=== PATIENT | male | born 1965 | race Caucasian/White ===

== ENCOUNTER 2016-11-12 00:43 | Inpatient (IN) ==
[2016-11-12] MEDS ORDERED: 0.9 % Sodium Chloride 1,000 ML IVC ONE (00:56)
--- NOTE | 2016-11-12 00:59 | Emergency Department Note ---
Disposition Clinical Impression: Abdominal pain, Pancreatitis, Hyperammonemia Disposition: Admitted As Inpatient Condition: Fair Referrals: Mary Ann Helton CNP [Primary Care Provider] - Time of Disposition: 03:11 ([facility]) Abdominal Pain HPI - General Stated Complaint: Abdomanal Pain x4 Days Time Seen by Provider: 11/12/16 01:54 Source: patient, EMS Mode of arrival: EMS Limitations: no limitations Nursing Notes Reviewed: Yes Vital Signs Reviewed: Yes - History of Present Illness HPI Narrative: Patient presents to emergency room having epigastric pain nausea vomiting and diarrhea spend going on for the last 4-5 days he states that he is not getting any better he denies fever chills lightheadedness dizziness denies any blurred vision double vision loss is denies any numbness tingling weakness denies any rash or lesions patient states that he just does not feel well he is here because the abdominal pain Pt Subjective Complaint: abdominal pain Onset (ago): day(s) (4-5) Consistency: constant Location: diffuse Pain Severity: severe Pain Scale: 10 Quality: cramping Improves with: nothing Worsens with: eating, vomiting, movement Context: history of similar episodes, other (hx of ascites) Associated symptoms: Reports: nausea, vomiting, diarrhea. Denies: fever, chills , constipation, dysuria, hematemesis, hematochezia, melena, hematuria, anorexia , syncope Treatments prior to arrival: prescription analgesics - Related Data Home Medications Medication Instructions Recorded Confirmed Furosemide [Lasix] 40 mg PO DAILY 06/09/16 08/20/16 Spironolactone [Aldactone] 100 mg PO DAILY 06/09/16 08/20/16 Lactulose 10 gm PO TID 07/02/16 08/20/16 Insulin Glargine [Lantus] 17 unit SQ BID 07/05/16 08/20/16 Albuterol Sulfate [Proair 2 puff IH Q6H 08/20/16 08/20/16 Respiclick] Budesonide/Formoterol 80/4.5 2 puff IH BIDR 08/20/16 08/20/16 [Symbicort 80/4.5] Ergocalciferol (VITAMIN D2) 1 tab PO 7XD 08/20/16 08/20/16 [Vitamin D2] HYDROcodone/Acet 5/325 mg [[place] 1 tab PO Q8H PRN 08/20/16 08/20/16 5-325 mg] Tiotropium [Spiriva] 18 mcg IH DAILY 08/20/16 08/20/16 Previous Rx's Medication Instructions Recorded Hydrocodone/Acetaminophen [[place] 1 tab PO TID PRN #6 tab 08/20/16 5-325 Tablet] Potassium Chloride 20 meq PO DAILY #7 tab.er.prt 08/20/16 Allergies Allergy/AdvReac Type Severity Reaction Status Date / Time tramadol [From Ultram] AdvReac Hives Verified 11/12/16 02:06 All systems ED: reviewed and negative except as stated. Constitutional: Reports: fever, weakness. Denies: chills Eyes: Denies: vision change ENT ED: Denies: ear pain, throat pain Cardiovascular: Denies: chest pain, palpitations Respiratory: Denies: dyspnea, wheezes Gastrointestinal: Reports: abdominal pain, nausea, vomiting, diarrhea Genitourinary: Denies: urgency, dysuria Musculoskeletal: Denies: back pain, neck pain Integumentary: Denies: rash, abrasion Neurological: Denies: headache Psychiatric: Denies: anxiety Endocrine: Reports: fatigue Hematological/Lymphatic: Denies: easy bleeding Allergic/Immunologic: Denies: facial swelling Abdominal Pain PMH - Past Medical History Medical history: Reports: cirrhosis, CHF, COPD, diabetes, liver disease, other Male Surgical History: Reports: appendectomy, other Psychiatric history: Reports: no psych history - Social History Smoking status: Current some day smoker Alcohol use: Reports: none Drug use: Reports: none Physical Exam - General Limitations: no limitations General appearance: alert, anxious, in distress, other - Head Head exam: atraumatic, normocephalic, normal inspection - Eye Eye exam: Present: normal appearance, PERRL, EOMI - ENT ENT exam: normal exam, normal oropharynx, mucous membranes dry, TM's normal bilaterally, normal external ear exam - Neck Neck exam: Present: normal inspection, full ROM, trachea midline - Chest Chest inspection: Present: normal inspection, symmetric chest wall rise - Respiratory Respiratory exam: Present: normal lung sounds bilaterally - Cardiovascular Cardiovascular exam: Present: regular rate, normal rhythm, normal heart sounds - Abdominal Exam Abdominal exam: Present: soft, tenderness, distention, hyperactive bowel sounds. Absent: mass, pulsatile mass - Extremities Exam Extremities exam: Present: normal inspection, full ROM, normal capillary refill - Back Exam Back exam: Present: normal inspection, full ROM. Absent: muscle spasm - Neurological Exam Neurological exam: Present: alert, oriented X3, CN II-XII intact - Psychiatric Psychiatric exam: Present: normal affect, normal mood - Skin Skin exam: Present: warm, dry, intact, normal color Course Course Narrative: Patient was seen and examined patient had an IV ordered patient orders for medicine for his stomach patient is taken radiology CAT scan was performed as result patient was given pain medication admitted and then transferred to [facility] patient has elevated ammonia level that the patient does not appear to be nonresponsive as a level CXXIII patient will be transferred Vital Signs Temperature 98.7 F 11/12/16 01:54 Pulse Rate 88 11/12/16 01:54 Respiratory Rate 24 11/12/16 01:54 Blood Pressure 145/76 11/12/16 01:54 O2 Sat by Pulse Oximetry 99 11/12/16 01:54 Temperature 98.7 F 11/12/16 01:54 Pulse Rate 88 11/12/16 01:54 Respiratory Rate 24 11/12/16 01:54 Blood Pressure 145/76 11/12/16 01:54 O2 Sat by Pulse Oximetry 99 11/12/16 01:54 Oxygen Delivery Oxygen Delivery Room Air Abdominal Pain - Differential Diagnosis Differential Diagnosis: Likely: abdominal pain non-specific, pancreatitis, other (liver disease) - Medical Records Medical records reviewed: Yes I reviewed the patient's medical records. - Lab Data Lab results reviewed: Yes I reviewed the patient's lab results. Result diagrams: 11/12/16 01:34 Lab Results 11/12/16 11/12/16 11/12/16 Range/Units 00:56 01:34 01:34 WBC 5.3 (4.3-11.1) K/mcL RBC 3.59 L (4.19-5.50) M/mcL Hgb 12.7 L (12.9-16.9) g/dL Hct 35.2 L (37.5-50.1) % MCV 98.1 (83.0-100.0) fL MCH 35.4 H (28.0-33.3) pg MCHC 36.1 H (31.6-35.5) g/dL RDW 14.9 H (11.5-14.5) % Plt Count 72 L (140-400) K/mcL MPV 11.9 (9.4-12.4) fL Immature Gran % 0.6 (0-4) % Seg Neutrophils % 74.3 % Lymphocytes % 9.2 % Monocytes % 12.3 % Eosinophils % 3.4 % Basophils % 0.2 % Neutrophils # 3.9 (1.6-8.9) K/mcL Lymphocytes # 0.5 L (0.6-4.6) K/mcL Monocytes # 0.7 (0.0-1.3) K/mcL Eosinophils # 0.2 (0.0-0.6) K/mcL Basophils # 0.0 (0.0-0.2) K/mcL Platelet Estimate Decreased L (Normal) PT (9.4-12.1) Seconds INR APTT 33.2 (26.0-36.0) Seconds Ammonia (18-72) mcmol/L Lipase (8-78) Units/L Urine Color Dark Yellow (Yellow) Urine Clarity Clear (Clear) Urine pH 5.5 (5.0-8.0) pH Units Ur Specific [place] 1.015 (1.010-1.025) Urine Protein Negative (Neg-Trace) mg/dL Urine Glucose (UA) Normal (Normal) mg/dL Urine Ketones Negative (Negative) mg/dL Urine Blood Trace-intact H (Negative) Urine Nitrite Negative (Negative) Urine Bilirubin Negative (Negative) Urine Urobilinogen Normal (Normal) mg/dL Ur Leukocyte Esterase Negative (Negative) Ur Squamous Epith Cells Few (None-Few) per lpf Ur Culture Indicated? NO (NO) 11/12/16 11/12/16 11/12/16 Range/Units 01:34 01:34 01:34 WBC (4.3-11.1) K/mcL RBC (4.19-5.50) M/mcL Hgb (12.9-16.9) g/dL Hct (37.5-50.1) % MCV (83.0-100.0) fL MCH (28.0-33.3) pg MCHC (31.6-35.5) g/dL RDW (11.5-14.5) % Plt Count (140-400) K/mcL MPV (9.4-12.4) fL Immature Gran % (0-4) % Seg Neutrophils % % Lymphocytes % % Monocytes % % Eosinophils % % Basophils % % Neutrophils # (1.6-8.9) K/mcL Lymphocytes # (0.6-4.6) K/mcL Monocytes # (0.0-1.3) K/mcL Eosinophils # (0.0-0.6) K/mcL Basophils # (0.0-0.2) K/mcL Platelet Estimate (Normal) PT 18.2 H (9.4-12.1) Seconds INR 1.7 APTT (26.0-36.0) Seconds Ammonia 123 H (18-72) mcmol/L Lipase 141 H (8-78) Units/L Urine Color (Yellow) Urine Clarity (Clear) Urine pH (5.0-8.0) pH Units Ur Specific [place] (1.010-1.025) Urine Protein (Neg-Trace) mg/dL Urine Glucose (UA) (Normal) mg/dL Urine Ketones (Negative) mg/dL Urine Blood (Negative) Urine Nitrite (Negative) Urine Bilirubin (Negative) Urine Urobilinogen (Normal) mg/dL Ur Leukocyte Esterase (Negative) Ur Squamous Epith Cells (None-Few) per lpf Ur Culture Indicated? (NO) - Radiology Data Radiology results reviewed: Yes I reviewed the patient's radiology results. ITS Impressions Abdomen/Pelvis CT 11/12/16 00:55 IMPRESSION: 1. A few mildly dilated small bowel loops, and liquid in multiple small bowel loops. The findings are indeterminate but could be related to enteritis. 2. Liquid stool throughout the colon into the rectum, suggesting diarrhea. 3. Findings of cirrhosis no suspicious focal liver lesion. 4. Findings of portal hypertension, including dilation of the main portal vein, enlarged venous collaterals, marked splenomegaly, and large ascites. 5. 4.2 cm x 3.8 cm x 3.4 cm lesion adjacent to paragastric varices. This could potentially represent aneurysmal dilation of a varix or lymphadenopathy. Consider further characterization with a contrast-enhanced study on a nonemergent basis, potentially liver protocol MRI or CT to better characterize the liver for any subtle lesions. 6. Trace right and small left pleural effusions and minimal anasarca. D/ / Tanvir Benoit MD / Tanvir Benoit MD Interpreting Provider: Tanvir Benoit MD - EKG Data EKG attestation: Yes I reviewed and interpreted this EKG. EKG results narrative: Rhythm NSR Heart Rate 89 AK 139 QRS 102 QT 382 Axes 56 Critical Care Time Critical Care Time: No
[2016-11-12 01:56] LABS: INR 1.7; Prothrombin Time 18.2 Seconds (9.4-12.1)
[2016-11-12 02:06] LABS: Basophils % 0.2 %; Eosinophils # 0.2 K/mcL (0.0-0.6); Eosinophils % 3.4 %; Hematocrit 35.2 % (37.5-50.1); Hemoglobin 12.7 g/dL (12.9-16.9); Immature Granulocytes % 0.6 % (0-4); Lymphocytes # 0.5 K/mcL (0.6-4.6); Lymphocytes % 9.2 %; Mean Corpuscular HGB Conc 36.1 g/dL (31.6-35.5); Mean Corpuscular Hemoglobin 35.4 pg (28.0-33.3); Mean Corpuscular Volume 98.1 fL (83.0-100.0); Mean Platelet Volume 11.9 fL (9.4-12.4); Monocytes # 0.7 K/mcL (0.0-1.3); Monocytes % 12.3 %; Neutrophils # 3.9 K/mcL (1.6-8.9); Platelet Count 72 K/mcL (140-400); Red Blood Count 3.59 M/mcL (4.19-5.50); Red Cell Distribution Width 14.9 % (11.5-14.5); Segmented Neutrophils % 74.3 %
[2016-11-12] MEDS: Ondansetron 4 MG/2 ML VIAL IV STA ×2 (02:12→04:01)
[2016-11-12 02:15] LABS: Bilirubin,Urine Negative (Negative); Blood,Urine Trace-intact (Negative); Clarity,Urine Clear (Clear); Color,Urine Dark Yellow (Yellow); Glucose,Urine (UA) Normal (Normal); Ketones,Urine Negative (Negative); Leukocyte Esterase,Urine Negative (Negative); Nitrite,Urine Negative (Negative); PH,Urine 5.5 pH Units (5.0-8.0); Protein,Urine Negative (Neg-Trace); Specific Gravity,Urine 1.015 (1.010-1.025); Urobilinogen,Urine Normal (Normal)
[2016-11-12 02:19] LABS: Platelet Estimate Decreased (Normal)
[2016-11-12 02:24] LABS: Squamous Epithelial Cell,Urine Few per lpf (None-Few)
[2016-11-12] MEDS ORDERED: Lactulose Oral Soln 20 GM/30 ML UDC PO ONE (03:05)
[2016-11-12] MEDS ORDERED: Dicyclomine 20 MG/2 ML AMPUL IM ONE (03:22)
[2016-11-12] MEDS ORDERED: Ondansetron 4 MG/2 ML VIAL IV STA (03:22)
[2016-11-12] MEDS ORDERED: Dextrose Gel 15 GM PO PRN ×2 (04:21)
[2016-11-12] MEDS ORDERED: *HR* Dextrose 50 % in Water (Syg) 50 ML SYRINGE IVP PRN (04:21)
[2016-11-12] MEDS ORDERED: Naloxone 0.4 MG/ML INJ IVP PRN (04:21)
[2016-11-12] MEDS ORDERED: D5% in Water 1,000 ML IV PRN (04:21)
[2016-11-12] MEDS: *HR* Morphine 2 MG/ML SYRINGE IVP PRN ×8 (04:40→22:58)
[2016-11-12] MEDS: 0.9 % Sodium Chloride 1,000 ML IVC SCH (05:31)
[2016-11-12] MEDS: Insulin LISPRO 300 UNITS/3 ML VIAL SQ SCH ×3 (09:11→17:25)
[2016-11-12 10:30] LABS: Alanine Aminotransferase 23 Units/L (0-55); Albumin 2.6 g/dL (3.5-5.0); Albumin/Globulin Ratio 0.6 (1.1-2.2); Alkaline Phosphatase 100 Units/L (38-126); Aspartate Amino Transferase 49 Units/L (5-34); BUN/Creatinine Ratio 15 (6-26); Bilirubin,Total 5.4 mg/dL (0.2-1.2); Blood Urea Nitrogen 21 mg/dL (8-26); Calcium 8.4 mg/dL (8.6-10.8); Carbon Dioxide 18 mEq/L (19-29); Chloride 110 mEq/L (98-109); Globulin 4.5 g/dL (2.4-3.5); Glucose 144 mg/dL (70-99); Osmolality,Calculated 288 (280-300); Potassium 4.5 mEq/L (3.5-4.5); Sodium 136 mEq/L (136-145); Total Protein 7.1 g/dL (6.0-8.3); eGFR For African Americans > 60 (> 60); eGFR For Non-African Americans 54 (> 60)
--- NOTE | 2016-11-12 11:08 | Electrocardiograph Report ---
[facility] Test Date: 2016-11-12 Pat Name: Dandy Adame Department: [id number] Room: [facility] Gender: M Top Collar Baster: Carlo : 1965 Requested By: Joselyn Noriega Order Number: [id number] Reading MD: Magan Nicholson MD Measurements Intervals [place] Rate: 89 P: 62 MI: 139 QRS: 56 QRSD: 102 T: 74 QT: 382 QTc: 429 Interpretive Statements SINUS RHYTHM Electronically Signed On 11-12-16 11:06:43 EST by Magan Nicholson MD
[2016-11-12] MEDS: Pantoprazole 40 MG VIAL IVP SCH (11:13)
--- NOTE | 2016-11-12 12:39 | Internal Med History&Physical ---
Date of Encounter: 11/12/16 Time of Encounter: 12:00 Assessment and Plan (1) Alcoholic cirrhosis of liver Current visit: Yes Status: Chronic Continue Lasix and Aldactone. I will obtain a full medication list from the pharmacy to see if he was previously taking rifaximin. Further workup will be done as needed. Qualifiers: Ascites presence: with ascites Qualified Code(s): K70.31 - Alcoholic cirrhosis of liver with ascites (2) Anemia Current visit: Yes Status: Chronic Anemia testing done 07/28/2016 showed no factor deficiency. I suspect he has bone marrow suppression from chronic alcohol use/cirrhosis. Qualifiers: Anemia type: unspecified type Qualified Code(s): D64.9 - Anemia, unspecified (3) Hypomagnesemia Current visit: Yes Status: Acute Magnesium level was 1.5 in emergency room. We will start magnesium supplementation. (4) Azotemia Current visit: Yes Status: Acute Will monitor renal indices. (5) Pancreatitis Current visit: Yes Status: Acute Seems to be of minimal severity. CT of abdomen did not show peripancreatic inflammation. We will monitor labs and clinical progress. Qualifiers: Chronicity: acute Pancreatitis type: unspecified pancreatitis type Acute pancreatitis complication: unspecified Qualified Code(s): K85.90 - Acute pancreatitis without necrosis or infection, unspecified Internal Medicine - H&P: HPI Chief complaint: Vomiting, diarrhea, abdominal pain Admitted From: Home Plans for Post Hospital Care: Home History of present illness: Mr. Adame is a 51 year old male who came to the emergency room stating he had onset of vomiting, diarrhea, and worsening abdominal pain approximately 4 days previously. He denies melena, hematochezia, or hematemesis. He reports he has had pain for approximately 4 week since being discharged from [facility]. The pain seemed to be worsening in his right abdominal area. He was evaluated in emergency room and admitted to Medr floor with a diagnosis of pancreatitis and elevated ammonia. He denies previous episodes of pancreatitis. He states he has not consumed alcohol in approximately 7-8 years. He has a diagnosis of alcoholic cirrhosis with ascites and had paracentesis done on each of 2 recent admissions at [facility]. He was placed on a "liver pill" but has not taken it for approximately 1 month because he did not get a refill. He is also not been using lactulose as prescribed. He has been taking his Lasix and Aldactone as prescribed. He states he had EGD with (?) esophageal banding procedure done at [facility]. He denies disorders of his gallbladder. Past Med Surg Social Fam HX - Past Medical History Medical history: cirrhosis, CHF, COPD, diabetes, liver disease, other Psychiatric history: no psych history - Social History Smoking Status: Former smoker Smokeless Tobacco Status: No Alcohol use: none Drug use: none - Family History Father History Unknown: Yes Adopted: [place]: Len Adame Family Member Ethnicity: Non- Living Status: Age at : 66 Cause of : [place] Hx Family Respiratory Disorders: Yes (COPD) Hx Family Cancer: No Hx Family GI Disorders: No Hx Family Genitourinary Disorders: No Hx Family Endocrine Disorder: No Hx Family Musculoskeletal Disorders: No Hx Family Neuromuscular Disorders: No Hx Family Neurologic Disorders: No Hx Family HEENT Disorders: No Hx Family Autoimmune Disorders: No Hx Family Reproductive Disorders: No Hx Family Psychosocial Disorders: No Hx Family Medical Disorders: Yes (history of cirrhosis) Internal Medicine - H&P: Meds Furosemide [Lasix] 120 mg PO BID 06/09/16 [History] Spironolactone [Aldactone] 200 mg PO BID 06/09/16 [History] Lactulose 10 gm PO TID 07/02/16 [History] Insulin Glargine [Lantus] 17 unit SQ BID 07/05/16 [History] Albuterol Sulfate [Proair Respiclick] 2 puff IH Q6H 08/20/16 [History] Budesonide/Formoterol 80/4.5 [Symbicort 80/4.5] 2 puff IH BIDR 08/20/16 [ History] Ergocalciferol (VITAMIN D2) [Vitamin D2] 1 tab PO 7XD 08/20/16 [History] Potassium Chloride 20 meq PO DAILY #7 tab.er.prt 08/20/16 [Rx] Tiotropium [Spiriva] 18 mcg IH DAILY 08/20/16 [History] Allergies tramadol [From Ultram] Adverse Reaction (Verified 11/12/16 02:06) Hives All Systems PM: A 10-system review of systems was performed and is negative for pertinent findings except as documented above in the HPI. Review of systems: Gen.: He states his weight has decreased from approximately 260 pounds a few weeks ago to present weight approximately 200 pounds. He attributes this to fluid loss Cardiovascular: He denies hypertension [place] heart failure angina DVT or pulmonary embolus Respiratory: He states he quit smoking approximately 2 weeks ago after starting at age 6. He smoked a total of 41 years in that interval never exceeding 1 pack per day. He has been diagnosed with COPD from pulmonary function test approximately 2013. He wears oxygen at bedtime and when necessary during the daytime. GI: As per history of present illness : He denies hematuria dysuria or kidney stones Neurologic: He denies large distribution strokes or seizures. Endocrine: Was diagnosed with DM 2 1995. He states he has a "thyroid problem" but does not know specific diagnosis. He states he was prescribed medication for this at an office visit with his PCP 1 week ago but did not feel well after taking the first pill so quit taking the prescription. He denies hyperlipidemia Hematology/oncology: He had anemia and thrombocytopenia on emergency room lab work. He thinks he has had anemia in the past. He denies internal malignancies. Psychiatric: He denies anxiety depression or other mental health issues Musculoskeletal: He denies arthritis gout or other bone joint or muscle disorders.. - Constitutional Vitals: Temp Pulse Resp BP Pulse Ox 97.5 F L 91 18 89/49 96 11/12/16 11:08 11/12/16 11:08 11/12/16 11:08 11/12/16 11:08 11/12/16 11:08 Exam: Gen.: He is a well-developed well-nourished male lying in bed who appears in mild discomfort HEENT: Head is atraumatic and normocephalic. Eyes: EOMI. There is no scleral icterus. Mouth: Mucosa is moist. He is edentulous. Neck: Supple and nontender. There is no thyromegaly or adenopathy noted. Heart: Regular without murmurs gallops or ectopics. Lungs: No wheezes or crackles heard. Abdomen: He has ascites present to percussion. There is mild tenderness to deeper palpation in the right abdominal area. He has a small umbilical hernia approximately one centimeters diameter that is easily reducible. No masses are noted. Extremities: He has trace edema of the lower anterior shins bilaterally. Dorsalis pedis and posterior tibial pulses are trace palpable bilaterally. His feet are warm to touch. Neurologic: Mental status: He is talkative and a good historian. Cranial nerves : Smile is symmetric. Forehead wrinkles bilaterally. Tongue protrudes midline. EOMI. Motor: There is no pronator drift. Cerebellar: Finger to nose is intact bilaterally. Skin: Warm and dry Internal Med - H&P Results - Labs CBC & Chem 7: 11/12/16 01:34 11/12/16 09:57 Labs: BMP 11/12/16 09:57 Sodium 136 Potassium 4.5 Chloride 110 H Carbon Dioxide 18 L BUN 21 Creatinine 1.37 H Glucose 144 H Calcium 8.4 L Liver Function 11/12/16 Range/Units 09:57 Total Bilirubin 5.4 H (0.2-1.2) mg/dL AST 49 H (5-34) Units/L ALT 23 (0-55) Units/L Alkaline Phosphatase 100 (38-126) Units/L Albumin 2.6 L (3.5-5.0) g/dL
[2016-11-12] MEDS: Lactulose Oral Soln 20 GM/30 ML UDC PO SCH ×2 (13:39→20:45)
[2016-11-12] MEDS: Magnesium Oxide 400 MG TABLET PO SCH (13:40)
[2016-11-13] MEDS: *HR* Morphine 2 MG/ML SYRINGE IVP PRN ×3 (01:39→08:41)
[2016-11-13 06:56] LABS: Basophils % 0.2 %; Eosinophils # 0.2 K/mcL (0.0-0.6); Eosinophils % 3.4 %; Hemoglobin 11.3 g/dL (12.9-16.9); Immature Granulocytes % 0.2 % (0-4); Lymphocytes # 0.4 K/mcL (0.6-4.6); Lymphocytes % 6.3 %; Mean Corpuscular HGB Conc 35.3 g/dL (31.6-35.5); Mean Corpuscular Hemoglobin 34.9 pg (28.0-33.3); Mean Corpuscular Volume 98.8 fL (83.0-100.0); Mean Platelet Volume 11.9 fL (9.4-12.4); Monocytes # 0.6 K/mcL (0.0-1.3); Monocytes % 9.5 %; Neutrophils # 5.2 K/mcL (1.6-8.9); Red Blood Count 3.24 M/mcL (4.19-5.50); Red Cell Distribution Width 15.3 % (11.5-14.5); Segmented Neutrophils % 80.4 %
[2016-11-13 07:02] LABS: INR 1.7
[2016-11-13 07:12] LABS: Alanine Aminotransferase 25 Units/L (0-55); Albumin 2.7 g/dL (3.5-5.0); Albumin/Globulin Ratio 0.6 (1.1-2.2); Alkaline Phosphatase 108 Units/L (38-126); Aspartate Amino Transferase 56 Units/L (5-34); BUN/Creatinine Ratio 16 (6-26); Blood Urea Nitrogen 18 mg/dL (8-26); Calcium 8.6 mg/dL (8.6-10.8); Carbon Dioxide 20 mEq/L (19-29); Chloride 108 mEq/L (98-109); Globulin 4.4 g/dL (2.4-3.5); Glucose 218 mg/dL (70-99); Osmolality,Calculated 291 (280-300); Potassium 4.5 mEq/L (3.5-4.5); Sodium 136 mEq/L (136-145); Total Protein 7.1 g/dL (6.0-8.3); eGFR For African Americans > 60 (> 60); eGFR For Non-African Americans > 60 (> 60)
[2016-11-13 07:18] LABS: Platelet Count 65 K/mcL (140-400)
[2016-11-13] MEDS: Lactulose Oral Soln 20 GM/30 ML UDC PO SCH ×2 (08:40→21:16)
[2016-11-13] MEDS: Magnesium Oxide 400 MG TABLET PO SCH (08:40)
[2016-11-13] MEDS: Pantoprazole 40 MG VIAL IVP SCH (08:41)
[2016-11-13] MEDS: Insulin LISPRO 300 UNITS/3 ML VIAL SQ SCH ×3 (08:42→16:58)
[2016-11-13] MEDS: 0.9 % Sodium Chloride 1,000 ML IVC SCH (08:44)
--- NOTE | 2016-11-13 11:03 | Internal Med Progress Note ---
Date of Encounter: 11/13/16 Time of Encounter: 10:50 - Assessment and plan (1) Alcoholic cirrhosis of liver Current Visit: Yes Status: Chronic Assessment and plan: November 13. Continue Lasix and Aldactone with lactulose. I will start him on rifaximin. Qualifiers: Ascites presence: with ascites Qualified Code(s): K70.31 - Alcoholic cirrhosis of liver with ascites (2) Anemia Current Visit: Yes Status: Chronic Assessment and plan: November 13. Anemia testing done 07/28/2016 showed no factor deficiency. I suspect he has bone marrow suppression from chronic alcohol use/cirrhosis. Continue to monitor CBC. Qualifiers: Anemia type: unspecified type Qualified Code(s): D64.9 - Anemia, unspecified (3) Hypomagnesemia Current Visit: Yes Status: Acute Assessment and plan: November 13. Continue magnesium oxide and monitor labs. (4) Azotemia Current Visit: Yes Status: Acute Assessment and plan: November 13. Improved. Continue present management (5) Pancreatitis Current Visit: Yes Status: Acute Assessment and plan: November 13. Continue present management Qualifiers: Chronicity: acute Pancreatitis type: unspecified pancreatitis type Acute pancreatitis complication: unspecified Qualified Code(s): K85.90 - Acute pancreatitis without necrosis or infection, unspecified (6) DM type 2 (diabetes mellitus, type 2) Current Visit: Yes Status: Chronic Assessment and plan: November 13. Will restart Lantus/Levemir at dose lower than usual home dose. Continue Accu-Cheks with SSI. 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 Vitamin D level was 16 on 07/28/2016. We will recheck in a.m. (8) Hypothyroidism Current Visit: Yes Status: Acute Assessment and plan: November 13. TSH was elevated at 13.681 on 07/28/2016. Will recheck TSH in a.m. Qualifiers: Hypothyroidism type: unspecified Qualified Code(s): E03.9 - Hypothyroidism , unspecified - Subjective Interval history: November 13. He states he has had 3 episodes of vomiting since yesterday afternoon when I saw him. He states his abdominal pain is still present but no worse and possibly slightly improved. He denies significant dyspnea. - Constitutional Vitals: Temp Pulse Resp BP Pulse Ox 98.2 F 98 16 122/63 93 L 11/13/16 07:31 11/13/16 07:31 11/13/16 07:31 11/13/16 07:31 11/13/16 07:31 Exam: He appears in minimal distress. He had slight instability on walking from the bathroom to the bed. I reviewed his medications and lab results. Internal Medicine: Result - Labs CBC & Chem 7: 11/13/16 05:57 11/13/16 05:57 Labs: Short CBC 11/13/16 Range/Units 05:57 WBC 6.5 (4.3-11.1) K/mcL Hgb 11.3 L (12.9-16.9) g/dL Hct 32.0 L (37.5-50.1) % Plt Count 65 L (140-400) K/mcL Neutrophils # 5.2 (1.6-8.9) K/mcL BMP 11/13/16 05:57 Sodium 136 Potassium 4.5 Chloride 108 Carbon Dioxide 20 BUN 18 Creatinine 1.12 Glucose 218 H Calcium 8.6 Liver Function 11/13/16 Range/Units 05:57 Total Bilirubin 7.0 H (0.2-1.2) mg/dL AST 56 H (5-34) Units/L ALT 25 (0-55) Units/L Alkaline Phosphatase 108 (38-126) Units/L Albumin 2.7 L (3.5-5.0) g/dL - ABG Interpretation ABG results: PT/INR, D-dimer PT 19.0 Seconds (9.4-12.1) H 11/13/16 05:57 Consult Discharge Plan - Plan
[2016-11-13] MEDS ORDERED: Ondansetron 4 MG/2 ML VIAL IVP PRN (11:07)
[2016-11-13] MEDS: Insulin DETEMIR 100 UNIT/ML X5UNITS SQ SCH (21:17)
[2016-11-14 06:31] LABS: Basophils % 0.2 %; Eosinophils # 0.2 K/mcL (0.0-0.6); Eosinophils % 2.9 %; Hematocrit 28.3 % (37.5-50.1); Hemoglobin 10.3 g/dL (12.9-16.9); Immature Granulocytes % 0.9 % (0-4); Lymphocytes # 0.4 K/mcL (0.6-4.6); Lymphocytes % 6.3 %; Mean Corpuscular HGB Conc 36.4 g/dL (31.6-35.5); Mean Corpuscular Hemoglobin 35.5 pg (28.0-33.3); Mean Corpuscular Volume 97.6 fL (83.0-100.0); Mean Platelet Volume 13.2 fL (9.4-12.4); Monocytes # 0.8 K/mcL (0.0-1.3); Monocytes % 11.7 %; Neutrophils # 5.1 K/mcL (1.6-8.9); Red Cell Distribution Width 15.2 % (11.5-14.5)
[2016-11-14 06:32] LABS: Platelet Count 50 K/mcL (140-400)
[2016-11-14 06:58] LABS: Alanine Aminotransferase 22 Units/L (0-55); Albumin 2.5 g/dL (3.5-5.0); Albumin/Globulin Ratio 0.6 (1.1-2.2); Alkaline Phosphatase 84 Units/L (38-126); Aspartate Amino Transferase 51 Units/L (5-34); BUN/Creatinine Ratio 22 (6-26); Bilirubin,Total 8.1 mg/dL (0.2-1.2); Blood Urea Nitrogen 20 mg/dL (8-26); Calcium 8.5 mg/dL (8.6-10.8); Carbon Dioxide 17 mEq/L (19-29); Chloride 110 mEq/L (98-109); Globulin 4.1 g/dL (2.4-3.5); Glucose 124 mg/dL (70-99); Magnesium 1.8 mg/dL (1.6-2.6); Osmolality,Calculated 284 (280-300); Phosphorous 2.3 mg/dL (2.3-4.7); Potassium 4.4 mEq/L (3.5-4.5); Sodium 135 mEq/L (136-145); Total Protein 6.6 g/dL (6.0-8.3); eGFR For African Americans > 60 (> 60); eGFR For Non-African Americans > 60 (> 60)
[2016-11-14 07:19] LABS: Thyroid Stimulating Hormone 1.999 mcIU/mL (0.350-4.840)
[2016-11-14 09:38] LABS: ABG PCO2 31 mmHg (35-45); ABG PH 7.42 pH Units (7.32-7.45)
--- NOTE | 2016-11-14 09:38 | Internal Med Progress Note ---
Date of Encounter: 11/14/16 Time of Encounter: 09:30 - Assessment and plan (1) Alcoholic cirrhosis of liver Current Visit: Yes Status: Chronic Assessment and plan: November 13. Continue Lasix and Aldactone with lactulose. I will start him on rifaximin. Qualifiers: Ascites presence: with ascites Qualified Code(s): K70.31 - Alcoholic cirrhosis of liver with ascites (2) Anemia Current Visit: Yes Status: Chronic Assessment and plan: November 13. Anemia testing done 07/28/2016 showed no factor deficiency. I suspect he has bone marrow suppression from chronic alcohol use/cirrhosis. Continue to monitor CBC. Qualifiers: Anemia type: unspecified type Qualified Code(s): D64.9 - Anemia, unspecified (3) Hypomagnesemia Current Visit: Yes Status: Acute Assessment and plan: November 13. Continue magnesium oxide and monitor labs. November 14. Magnesium level is normal now at 1.8. Continue magnesium oxide. (4) Azotemia Current Visit: Yes Status: Acute Assessment and plan: November 13. Improved. Continue present management . Resolved. Continue present management. (5) Pancreatitis Current Visit: Yes Status: Acute Assessment and plan: November 13. Continue present management November 14. Continue present management Qualifiers: Chronicity: acute Pancreatitis type: unspecified pancreatitis type Acute pancreatitis complication: unspecified Qualified Code(s): K85.90 - Acute pancreatitis without necrosis or infection, unspecified (6) DM type 2 (diabetes mellitus, type 2) Current Visit: Yes Status: Chronic Assessment and plan: November 13. Will restart Lantus/Levemir at dose lower than usual home dose. Continue Accu-Cheks with SSI. November 14. Blood sugars are improved. Continue present dose of Lantus last Levemir and Accu-Cheks with SSI. Qualifiers: Diabetes mellitus complication status: without complication Diabetes mellitus fdc insulin use: with fdc use Qualified Code(s): E11.9 - Type 2 diabetes mellitus without complications; Z79.4 - FPC (current) use of insulin (7) Vitamin D deficiency Current Visit: Yes Status: Acute Assessment and plan: November 13. Vitamin D level was 16 on 07/28/2016. We will recheck in a.m. November 14. Vitamin D level is pending (8) Hypothyroidism Current Visit: Yes Status: Acute Assessment and plan: November 13. TSH was elevated at 13.681 on 07/28/2016. Will recheck TSH in a.m. November 14. TSH was normal at 1.999. Continue present dose Synthroid Qualifiers: Hypothyroidism type: unspecified Qualified Code(s): E03.9 - Hypothyroidism , unspecified (9) Pneumonia Current Visit: Yes Status: Acute Assessment and plan: November 14. Chest x-ray showed equivocal findings for right lower lobe pneumonia. Will treat with Rocephin and Zithromax. Qualifiers: Pneumonia type: due to unspecified organism Laterality: right Lung location: lower lobe of lung Qualified Code(s): J18.1 - Lobar pneumonia, unspecified organism - Subjective Interval history: November 13. He states he has had 3 episodes of vomiting since yesterday afternoon when I saw him. He states his abdominal pain is still present but no worse and possibly slightly improved. He denies significant dyspnea. November 14. He is less verbal today and seems slightly more confused. He states he still has slight abdominal pain but thinks it is improved. - Constitutional Vitals: Temp Pulse Resp BP Pulse Ox 98.1 F 91 20 98/59 100 11/14/16 06:45 11/14/16 06:45 11/14/16 06:45 11/14/16 06:45 11/14/16 06:45 Exam: He appears ataxic as he attempts to stand. His heart is regular without murmurs gallops or ectopics. Lungs show prolonged's expiratory phase with mild diffuse wheezing. Extremities show trace edema bilaterally. I reviewed his medications and lab results. I reviewed his chest x-ray report from last night which was ordered due to dyspnea Internal Medicine: Result - Labs CBC & Chem 7: 11/14/16 05:46 11/14/16 05:46 Labs: Short CBC 11/14/16 Range/Units 05:46 WBC 6.5 (4.3-11.1) K/mcL Hgb 10.3 L (12.9-16.9) g/dL Hct 28.3 L (37.5-50.1) % Plt Count 50 L (140-400) K/mcL Neutrophils # 5.1 (1.6-8.9) K/mcL BMP 11/14/16 05:46 Sodium 135 L Potassium 4.4 Chloride 110 H Carbon Dioxide 17 L BUN 20 Creatinine 0.93 Glucose 124 H Calcium 8.5 L Liver Function 11/14/16 Range/Units 05:46 Total Bilirubin 8.1 H (0.2-1.2) mg/dL AST 51 H (5-34) Units/L ALT 22 (0-55) Units/L Alkaline Phosphatase 84 (38-126) Units/L Albumin 2.5 L (3.5-5.0) g/dL - ABG Interpretation ABG results: PT/INR, D-dimer PT 19.0 Seconds (9.4-12.1) H 11/13/16 05:57 - Impressions Impressions Chest X-Ray 11/13/16 21:38 IMPRESSION: Small right pleural effusion. Mild right basilar atelectasis and/or consolidation. D/ / Xavier Nj MD / Xavier Nj MD Interpreting Provider: Xavier Nj MD Consult Discharge Plan - Plan Referrals: Mary Ann Helton, ECONOMIC RESEARCH ANALYST [Primary Care Provider] - 1 week
[2016-11-14] MEDS: Insulin DETEMIR 100 UNIT/ML X5UNITS SQ SCH ×2 (09:40→23:15)
[2016-11-14 09:42] LABS: ABG Base Excess -4.3 mEq/L (-2.0 to 3.0); ABG HCO3 20.3 mEQ/L (21-27); ABG PO2 43 mmHg (85-104); ABG TCO2 21.2 mEq/L (20-26)
[2016-11-14 09:43] LABS: ABG Oxygen Saturation 80 % (95-98)
[2016-11-14] MEDS: *HR* LORazepam 2 MG/ML VIAL IVP PRN ×3 (11:46→23:23)
[2016-11-14] MEDS: Insulin LISPRO 300 UNITS/3 ML VIAL SQ SCH ×3 (11:50→18:13)
[2016-11-14] MEDS: CefTRIAXone 1,000 MG in D5% in Water (Mini-Bag+) 100 ML IVPB SCH (11:56)
[2016-11-14] MEDS: Pantoprazole 40 MG VIAL IVP SCH (12:14)
[2016-11-14] MEDS: Azithromycin 500 MG in D5% in Water 250 ML IVPB SCH (13:20)
[2016-11-14] MEDS: Magnesium Oxide 400 MG TABLET PO SCH (13:21)
[2016-11-14] MEDS: Lactulose Oral Soln 20 GM/30 ML UDC PO SCH ×2 (13:21→23:15)
[2016-11-14] MEDS ORDERED: *HR* LORazepam 2 MG/ML VIAL IVP ONE (14:44)
[2016-11-14] MEDS: *HR* Morphine 2 MG/ML SYRINGE IVP PRN ×2 (15:07→23:27)
[2016-11-15] MEDS: *HR* Morphine 2 MG/ML SYRINGE IVP PRN ×3 (03:59→13:19)
[2016-11-15] MEDS: Levothyroxine 25 MCG TABLET PO SCH (06:15)
[2016-11-15 06:35] LABS: Basophils % 0.3 %; Eosinophils # 0.1 K/mcL (0.0-0.6); Eosinophils % 3.7 %; Hematocrit 24.5 % (37.5-50.1); Immature Granulocytes % 0.3 % (0-4); Lymphocytes # 0.6 K/mcL (0.6-4.6); Mean Corpuscular HGB Conc 36.7 g/dL (31.6-35.5); Mean Corpuscular Hemoglobin 35.9 pg (28.0-33.3); Mean Corpuscular Volume 97.6 fL (83.0-100.0); Mean Platelet Volume 12.7 fL (9.4-12.4); Monocytes # 0.6 K/mcL (0.0-1.3); Monocytes % 15.5 %; Neutrophils # 2.4 K/mcL (1.6-8.9); Red Blood Count 2.51 M/mcL (4.19-5.50); Red Cell Distribution Width 15.4 % (11.5-14.5); Segmented Neutrophils % 65.2 %
[2016-11-15 06:36] LABS: Platelet Count 48 K/mcL (140-400)
[2016-11-15 06:47] LABS: Alanine Aminotransferase 20 Units/L (0-55); Albumin 2.1 g/dL (3.5-5.0); Albumin/Globulin Ratio 0.6 (1.1-2.2); Alkaline Phosphatase 68 Units/L (38-126); Aspartate Amino Transferase 44 Units/L (5-34); BUN/Creatinine Ratio 23 (6-26); Bilirubin,Total 5.7 mg/dL (0.2-1.2); Blood Urea Nitrogen 19 mg/dL (8-26); Carbon Dioxide 19 mEq/L (19-29); Chloride 112 mEq/L (98-109); Globulin 3.5 g/dL (2.4-3.5); Glucose 116 mg/dL (70-99); Osmolality,Calculated 287 (280-300); Sodium 137 mEq/L (136-145); Total Protein 5.6 g/dL (6.0-8.3); eGFR For African Americans > 60 (> 60); eGFR For Non-African Americans > 60 (> 60)
[2016-11-15] MEDS: Magnesium Oxide 400 MG TABLET PO SCH (08:44)
[2016-11-15] MEDS: Insulin DETEMIR 100 UNIT/ML X5UNITS SQ SCH ×2 (08:45→20:34)
[2016-11-15] MEDS: Lactulose Oral Soln 20 GM/30 ML UDC PO SCH ×2 (08:45→20:34)
[2016-11-15] MEDS: Insulin LISPRO 300 UNITS/3 ML VIAL SQ SCH ×3 (08:48→17:31)
[2016-11-15] MEDS: Pantoprazole 40 MG VIAL IVP SCH (08:51)
[2016-11-15] MEDS: CefTRIAXone 1,000 MG in D5% in Water (Mini-Bag+) 100 ML IVPB SCH (08:53)
--- NOTE | 2016-11-15 10:04 | Discharge Summary ---
Date of Encounter: 11/15/16 Time of Encounter: 09:50 - Discharge Diagnosis (1) Pancreatitis Priority: Primary Status: Acute Qualifiers: Chronicity: acute Pancreatitis type: unspecified pancreatitis type Acute pancreatitis complication: unspecified Qualified Code(s): K85.90 - Acute pancreatitis without necrosis or infection, unspecified (2) Alcoholic cirrhosis of liver Priority: Secondary Status: Chronic Qualifiers: Ascites presence: with ascites Qualified Code(s): K70.31 - Alcoholic cirrhosis of liver with ascites (3) Anemia Priority: Secondary Status: Chronic Qualifiers: Anemia type: unspecified type Qualified Code(s): D64.9 - Anemia, unspecified (4) Hypomagnesemia Priority: Secondary Status: Acute (5) Azotemia Priority: Secondary Status: Resolved (6) DM type 2 (diabetes mellitus, type 2) Priority: Secondary Status: Chronic Qualifiers: Diabetes mellitus complication status: without complication 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 Qualified Code(s): E11.9 - Type 2 diabetes mellitus without complications; Z79.4 - senior care (current) use of insulin (7) Vitamin D deficiency Priority: Secondary Status: Acute (8) Hypothyroidism Priority: Secondary Status: Chronic Qualifiers: Hypothyroidism type: unspecified Qualified Code(s): E03.9 - Hypothyroidism , unspecified (9) Pneumonia Priority: Secondary Status: Acute Qualifiers: Pneumonia type: due to unspecified organism Laterality: right Lung location: lower lobe of lung Qualified Code(s): J18.1 - Lobar pneumonia, unspecified organism - Discharge Medications Prescriptions: Cefuroxime PO [Ceftin] 500 mg PO Q12HR #8 tablet Azithromycin [Zithromax] 250 mg PO DAILY #4 tablet Lactobacillus [Culturelle] 1 each PO BID #8 cap.sprink Lactulose 10 gm PO BID #1000 ml Rifaximin [Xifaxan] 400 mg PO BID #120 tablet Home Medications: Furosemide [Lasix] 120 mg PO BID 06/09/16 [History] Spironolactone [Aldactone] 200 mg PO BID 06/09/16 [History] Insulin Glargine [Lantus] 17 unit SQ BID 07/05/16 [History] Albuterol Sulfate [Proair Respiclick] 2 puff IH Q6H 08/20/16 [History] Budesonide/Formoterol 80/4.5 [Symbicort 80/4.5] 2 puff IH BIDR 08/20/16 [ History] Ergocalciferol (VITAMIN D2) [Vitamin D2] 1 tab PO 7XD 08/20/16 [History] Tiotropium [Spiriva] 18 mcg IH DAILY 08/20/16 [History] Ferrous Sulfate [Iron] 325 mg PO QDPC 11/12/16 [History] Folic Acid/Multivit-Min/Lutein [Maximin Pack] 1 each PO QWEEK 11/12/16 [History] Levothyroxine [Synthroid] 25 mcg PO 0630 11/12/16 [History] Oxycodone HCl [Oxaydo] 5 mg PO QDPC 11/12/16 [History] Azithromycin [Zithromax] 250 mg PO DAILY #4 tablet 11/15/16 [Rx] Cefuroxime PO [Ceftin] 500 mg PO Q12HR #8 tablet 11/15/16 [Rx] Lactobacillus [Culturelle] 1 each PO BID #8 cap.sprink 11/15/16 [Rx] Lactulose 10 gm PO BID #1000 ml 11/15/16 [Rx] Rifaximin [Xifaxan] 400 mg PO BID #120 tablet 11/15/16 [Rx] Allergies/Adverse Reactions: Allergies tramadol [From [facility]] Adverse Reaction (Verified 11/12/16 02:06) Hives Date of admission: 11/12/16 14:06 Primary care physician: Mary Ann Helton - Patient Status Disposition: Home, Self-Care Condition: Fair - Discharge Instructions Follow Up With: Mary Ann Helton, DIRECTOR COMPLIANCE [Primary Care Provider] - 1 week Forms: ED Satisfaction Letter, Work/School Release - Diet and Activity Activity: resume usual activities as tolerated, wear oxygen at night Diet: advance to your usual diet Hospital course: Mr. Adame is a 51 year old male who came to the emergency room stating he had onset of vomiting, diarrhea, and worsening abdominal pain approximately 4 days previously. He denies melena, hematochezia, or hematemesis. He reports he has had pain for approximately 4 week since being discharged from [facility]. The pain seemed to be worsening in his right abdominal area. He was evaluated in emergency room and admitted to [facility] floor with a diagnosis of pancreatitis and elevated ammonia. Initial orders were written by the emergency room physician. I saw him on November 12 and performed the history and physical. The pancreatitis clinically improved and he was able to tolerate adequate food and fluid intake by the day of discharge without further vomiting or diarrhea. His abdominal pain significantly improved also. His azotemia resolved with BUN and creatinine being 19 and 0.3 respectively on the day of discharge. Magnesium level was low at 1.5 on admission. He was given supplemental magnesium and his level normalized by the day of discharge. He will not continue magnesium supplement at discharge. Mary Ann Helton CNP can follow-up labs as needed. His bilirubin emely to 8.1 on November 14 but had improved to 5.7 on the day of discharge. I started him on rifaximin for his cirrhosis and clinical hepatic encephalopathy. Mary Ann Helton CNP can monitor his response to this as an outpatient. A chest x-ray done the morning of November 14 for increased dyspnea and cough showed possible right basilar infiltrate. He was started on Rocephin and Zithromax during hospitalization. He will continue oral Ceftin and Zithromax for 4 additional days after discharge. He will also be given lactobacillus. On November 15 he stated he wished to be discharged home. He will follow with Mary Ann Bryant within 1 week. - Time Spent with Patient Total time spent providing and/or coordinating discharge services: - Constitutional Vitals: Temp Pulse Resp BP Pulse Ox 98.3 F 95 18 115/69 94 L 11/15/16 06:52 11/15/16 06:52 11/15/16 06:52 11/15/16 06:52 11/15/16 06:52
[2016-11-15] MEDS: Azithromycin 500 MG in D5% in Water 250 ML IVPB SCH (13:23)
[2016-11-15] MEDS: *HR* LORazepam 2 MG/ML VIAL IVP PRN ×2 (13:23→20:23)
[2016-11-16] MEDS: Levothyroxine 25 MCG TABLET PO SCH (07:33)
[2016-11-16] MEDS: Insulin LISPRO 300 UNITS/3 ML VIAL SQ SCH ×3 (08:25→16:19)
[2016-11-16] MEDS: Pantoprazole 40 MG VIAL IVP SCH (08:25)
[2016-11-16] MEDS: Magnesium Oxide 400 MG TABLET PO SCH (08:25)
[2016-11-16] MEDS: Lactulose Oral Soln 20 GM/30 ML UDC PO SCH ×2 (08:26→21:47)
[2016-11-16] MEDS: *HR* Morphine 2 MG/ML SYRINGE IVP PRN ×4 (09:17→21:55)
[2016-11-16] MEDS: Insulin DETEMIR 100 UNIT/ML X5UNITS SQ SCH ×2 (09:19→21:48)
[2016-11-16] MEDS: CefTRIAXone 1,000 MG in D5% in Water (Mini-Bag+) 100 ML IVPB SCH (10:01)
[2016-11-16] MEDS: *HR* LORazepam 2 MG/ML VIAL IVP PRN (10:11)
[2016-11-16] MEDS: Azithromycin 500 MG in D5% in Water 250 ML IVPB SCH (11:08)
--- NOTE | 2016-11-16 12:30 | Internal Med Progress Note ---
Date of Encounter: 11/16/16 Time of Encounter: 10:30 - Assessment and plan (1) Pancreatitis Current Visit: Yes Status: Acute Assessment and plan: November 13. Continue present management November 14. Continue present management . November 16. Clinically resolved. Qualifiers: Chronicity: acute Pancreatitis type: unspecified pancreatitis type Acute pancreatitis complication: unspecified Qualified Code(s): K85.90 - Acute pancreatitis without necrosis or infection, unspecified (2) Alcoholic cirrhosis of liver Current Visit: Yes Status: Chronic Assessment and plan: November 13. Continue Lasix and Aldactone with lactulose. I will start him on rifaximin. November 16. Continue present regimen Qualifiers: Ascites presence: with ascites Qualified Code(s): K70.31 - Alcoholic cirrhosis of liver with ascites (3) Anemia Current Visit: Yes Status: Chronic Assessment and plan: November 13. Anemia testing done 07/28/2016 showed no factor deficiency. I suspect he has bone marrow suppression from chronic alcohol use/cirrhosis. Continue to monitor CBC. Qualifiers: Anemia type: unspecified type Qualified Code(s): D64.9 - Anemia, unspecified (4) Hypomagnesemia Current Visit: Yes Status: Acute Assessment and plan: November 13. Continue magnesium oxide and monitor labs. November 14. Magnesium level is normal now at 1.8. Continue magnesium oxide. (5) Azotemia Current Visit: Yes Status: Resolved Assessment and plan: November 13. Improved. Continue present management . Resolved. Continue present management. (6) DM type 2 (diabetes mellitus, type 2) Current Visit: Yes Status: Chronic Assessment and plan: November 13. Will restart Lantus/Levemir at dose lower than usual home dose. Continue Accu-Cheks with SSI. November 14. Blood sugars are improved. Continue present dose of Lantus last Levemir and Accu-Cheks with SSI. Qualifiers: Diabetes mellitus complication status: without complication Diabetes mellitus custodial insulin use: with continuous churn buttermaker use Qualified Code(s): E11.9 - Type 2 diabetes mellitus without complications; Z79.4 - detention (current) use of insulin (7) Vitamin D deficiency Current Visit: Yes Status: Acute Assessment and plan: November 13. Vitamin D level was 16 on 07/28/2016. We will recheck in a.m. November 14. Vitamin D level is pending November 16. Vitamin D level has returned low at 19. We will start vitamin D supplement (8) Hypothyroidism Current Visit: Yes Status: Chronic Assessment and plan: November 13. TSH was elevated at 13.681 on 07/28/2016. Will recheck TSH in a.m. November 14. TSH was normal at 1.999. Continue present dose Synthroid Qualifiers: Hypothyroidism type: unspecified Qualified Code(s): E03.9 - Hypothyroidism , unspecified (9) Pneumonia Current Visit: Yes Status: Acute Assessment and plan: November 14. Chest x-ray showed equivocal findings for right lower lobe pneumonia. Will treat with Rocephin and Zithromax. November 16. Continue Rocephin and Zithromax with lactobacillus Qualifiers: Pneumonia type: due to unspecified organism Laterality: right Lung location: lower lobe of lung Qualified Code(s): J18.1 - Lobar pneumonia, unspecified organism - Subjective Interval history: November 13. He states he has had 3 episodes of vomiting since yesterday afternoon when I saw him. He states his abdominal pain is still present but no worse and possibly slightly improved. He denies significant dyspnea. November 14. He is less verbal today and seems slightly more confused. He states he still has slight abdominal pain but thinks it is improved. November 16. His discharge was canceled yesterday after family arrived from [place] and felt he could not receive adequate care in his existing home environment. The patient and family agree that SNF placement in the [place] area may be the best choice for ongoing care needs in the immediate future - Constitutional Vitals: Temp Pulse Resp BP Pulse Ox 97.9 F 99 18 100/55 99 11/16/16 10:58 11/16/16 10:58 11/16/16 10:58 11/16/16 10:58 11/16/16 10:58 Exam: He is sitting in a wheelchair and appears in no acute distress. His speech has improved slightly but he is still slightly lethargic. Does answer questions appropriately. I reviewed his medications and lab results. Internal Medicine: Result - Labs CBC & Chem 7: 11/15/16 05:40 11/15/16 05:40 - ABG Interpretation ABG results: ABG ABG pH 7.42 pH Units (7.32-7.45) 11/14/16 09:16 ABG pCO2 31 mmHg (35-45) L 11/14/16 09:16 ABG pO2 43 mmHg (85-104) L* 11/14/16 09:16 ABG O2 Saturation 80 % (95-98) L 11/14/16 09:16 PT/INR, D-dimer PT 19.0 Seconds (9.4-12.1) H 11/13/16 05:57 Consult Discharge Plan - Plan Referrals: Mary Ann Helton, APPAREL MANAGER [Primary Care Provider] - 1 week Prescriptions: Cefuroxime PO [Ceftin] 500 mg PO Q12HR #8 tablet Azithromycin [Zithromax] 250 mg PO DAILY #4 tablet Lactobacillus [Culturelle] 1 each PO BID #8 cap.sprink Lactulose 10 gm PO BID #1000 ml Rifaximin [Xifaxan] 400 mg PO BID #120 tablet
[2016-11-16] MEDS: Lactobacillus 1 EACH CAP.SPRINK PO SCH ×2 (13:26→21:47)
[2016-11-16] MEDS: Furosemide 40 MG TABLET PO SCH ×2 (13:27→16:24)
[2016-11-16] MEDS: Spironolactone 25 MG TABLET PO SCH ×2 (13:27→21:47)
[2016-11-16] MEDS: Cholecalciferol (D-3) 1,000 UNIT TABLET PO SCH (13:27)
[2016-11-17] MEDS: *HR* Morphine 2 MG/ML SYRINGE IVP PRN ×5 (00:36→22:01)
[2016-11-17] MEDS: *HR* LORazepam 2 MG/ML VIAL IVP PRN (02:05)
[2016-11-17] MEDS: Levothyroxine 25 MCG TABLET PO SCH (06:24)
[2016-11-17] MEDS: Insulin LISPRO 300 UNITS/3 ML VIAL SQ SCH ×3 (08:14→16:56)
[2016-11-17] MEDS: Furosemide 40 MG TABLET PO SCH ×2 (08:15→16:56)
[2016-11-17] MEDS: Spironolactone 25 MG TABLET PO SCH ×2 (08:15→21:54)
[2016-11-17] MEDS: Lactobacillus 1 EACH CAP.SPRINK PO SCH ×2 (08:15→21:54)
[2016-11-17] MEDS: Cholecalciferol (D-3) 1,000 UNIT TABLET PO SCH (08:15)
[2016-11-17] MEDS: Magnesium Oxide 400 MG TABLET PO SCH (08:15)
[2016-11-17] MEDS: Lactulose Oral Soln 20 GM/30 ML UDC PO SCH ×2 (08:15→21:54)
[2016-11-17] MEDS: Insulin DETEMIR 100 UNIT/ML X5UNITS SQ SCH ×2 (08:55→21:58)
[2016-11-17] MEDS: CefTRIAXone 1,000 MG in D5% in Water (Mini-Bag+) 100 ML IVPB SCH (10:51)
[2016-11-17] MEDS: Azithromycin 500 MG in D5% in Water 250 ML IVPB SCH (11:30)
--- NOTE | 2016-11-17 15:24 | Internal Med Progress Note ---
Date of Encounter: 11/17/16 Time of Encounter: 15:15 - Assessment and plan (1) Pancreatitis Current Visit: Yes Status: Acute Assessment and plan: November 13. Continue present management November 14. Continue present management . November 16. Clinically resolved. Qualifiers: Chronicity: acute Pancreatitis type: unspecified pancreatitis type Acute pancreatitis complication: unspecified Qualified Code(s): K85.90 - Acute pancreatitis without necrosis or infection, unspecified (2) Alcoholic cirrhosis of liver Current Visit: Yes Status: Chronic Assessment and plan: November 13. Continue Lasix and Aldactone with lactulose. I will start him on rifaximin. November 16. Continue present regimen Qualifiers: Ascites presence: with ascites Qualified Code(s): K70.31 - Alcoholic cirrhosis of liver with ascites (3) Anemia Current Visit: Yes Status: Chronic Assessment and plan: November 13. Anemia testing done 07/28/2016 showed no factor deficiency. I suspect he has bone marrow suppression from chronic alcohol use/cirrhosis. Continue to monitor CBC. November 17. Hemoglobin was decreased to 9.0 on November 15. We will recheck labs in a.m. Qualifiers: Anemia type: unspecified type Qualified Code(s): D64.9 - Anemia, unspecified (4) Hypomagnesemia Current Visit: Yes Status: Acute Assessment and plan: November 13. Continue magnesium oxide and monitor labs. November 14. Magnesium level is normal now at 1.8. Continue magnesium oxide. November 17. We will recheck labs in a.m. (5) DM type 2 (diabetes mellitus, type 2) Current Visit: Yes Status: Chronic Assessment and plan: November 13. Will restart Lantus/Levemir at dose lower than usual home dose. Continue Accu-Cheks with SSI. November 14. Blood sugars are improved. Continue present dose of Lantus last Levemir and Accu-Cheks with SSI. November 17. Blood sugars are acceptable. Continue present dose Levemir. Humulin A1c was 5.2% on 07/28/2016. Qualifiers: Diabetes mellitus complication status: without complication Diabetes mellitus equipment operator intermodal yard insulin use: with fdc use Qualified Code(s): E11.9 - Type 2 diabetes mellitus without complications; Z79.4 - terminal operator (current) use of insulin (6) Vitamin D deficiency Current Visit: Yes Status: Acute Assessment and plan: November 13. Vitamin D level was 16 on 07/28/2016. We will recheck in a.m. November 14. Vitamin D level is pending November 16. Vitamin D level has returned low at 19. We will start vitamin D supplement (7) Hypothyroidism Current Visit: Yes Status: Chronic Assessment and plan: November 13. TSH was elevated at 13.681 on 07/28/2016. Will recheck TSH in a.m. November 14. TSH was normal at 1.999. Continue present dose Synthroid Qualifiers: Hypothyroidism type: unspecified Qualified Code(s): E03.9 - Hypothyroidism , unspecified (8) Pneumonia Current Visit: Yes Status: Acute Assessment and plan: November 14. Chest x-ray showed equivocal findings for right lower lobe pneumonia. Will treat with Rocephin and Zithromax. November 16. Continue Rocephin and Zithromax with lactobacillus November 17. Continue present regimen through November 18. Qualifiers: Pneumonia type: due to unspecified organism Laterality: right Lung location: lower lobe of lung Qualified Code(s): J18.1 - Lobar pneumonia, unspecified organism - Subjective Interval history: November 13. He states he has had 3 episodes of vomiting since yesterday afternoon when I saw him. He states his abdominal pain is still present but no worse and possibly slightly improved. He denies significant dyspnea. November 14. He is less verbal today and seems slightly more confused. He states he still has slight abdominal pain but thinks it is improved. November 16. His discharge was canceled yesterday after family arrived from [place] and felt he could not receive adequate care in his existing home environment. The patient and family agree that SNF placement in the [place] area may be the best choice for ongoing care needs in the immediate future November 17. He has no new complaints. Social service has discovered he has a felony conviction and cannot leave [facility] since he is on probation and follows with a search and rescue officer. Placement in a [facility] SNF is being pursued - Constitutional Vitals: Temp Pulse Resp BP Pulse Ox 97.8 F 82 16 104/58 96 11/17/16 09:58 11/17/16 10:10 11/17/16 10:10 11/17/16 10:10 11/17/16 10:10 Exam: He is resting comfortably in bed. His speech is more understandable. Heart is regular without murmurs gallops or ectopics. Lungs are clear. Extremity show no edema. I reviewed his medications and lab results. Internal Medicine: Result - Labs CBC & Chem 7: 11/15/16 05:40 11/15/16 05:40 - ABG Interpretation ABG results: ABG ABG pH 7.42 pH Units (7.32-7.45) 11/14/16 09:16 ABG pCO2 31 mmHg (35-45) L 11/14/16 09:16 ABG pO2 43 mmHg (85-104) L* 11/14/16 09:16 ABG O2 Saturation 80 % (95-98) L 11/14/16 09:16 PT/INR, D-dimer PT 19.0 Seconds (9.4-12.1) H 11/13/16 05:57 Consult Discharge Plan - Plan Referrals: Mary Ann Helton, GAGE MAKER [Primary Care Provider] - 1 week Prescriptions: Cefuroxime PO [Ceftin] 500 mg PO Q12HR #8 tablet Azithromycin [Zithromax] 250 mg PO DAILY #4 tablet Lactobacillus [Culturelle] 1 each PO BID #8 cap.sprink Lactulose 10 gm PO BID #1000 ml Rifaximin [Xifaxan] 400 mg PO BID #120 tablet
[2016-11-18] MEDS: *HR* Morphine 2 MG/ML SYRINGE IVP PRN ×2 (02:23→05:02)
[2016-11-18] MEDS: Levothyroxine 25 MCG TABLET PO SCH (05:02)
[2016-11-18 07:54] VITALS: BP 138/77
[2016-11-18] MEDS: Spironolactone 25 MG TABLET PO SCH (09:24)
[2016-11-18] MEDS: Lactobacillus 1 EACH CAP.SPRINK PO SCH (09:25)
[2016-11-18] MEDS: Furosemide 40 MG TABLET PO SCH (09:25)
[2016-11-18] MEDS: Cholecalciferol (D-3) 1,000 UNIT TABLET PO SCH (09:25)
[2016-11-18] MEDS: Magnesium Oxide 400 MG TABLET PO SCH (09:25)
[2016-11-18] MEDS: Lactulose Oral Soln 20 GM/30 ML UDC PO SCH (09:26)
[2016-11-18] MEDS: CefTRIAXone 1,000 MG in D5% in Water (Mini-Bag+) 100 ML IVPB SCH (09:27)
[2016-11-18] MEDS: Insulin DETEMIR 100 UNIT/ML X5UNITS SQ SCH (09:27)
[2016-11-18] MEDS: Insulin LISPRO 300 UNITS/3 ML VIAL SQ SCH (09:27)
[2016-11-18] MEDS: Azithromycin 500 MG in D5% in Water 250 ML IVPB SCH (09:27)
--- NOTE | 2016-11-18 09:37 | Discharge Summary ---
Date of Encounter: 11/18/16 Time of Encounter: 09:30 - Discharge Diagnosis (1) Pancreatitis Priority: Primary Status: Resolved Qualifiers: Chronicity: acute Pancreatitis type: unspecified pancreatitis type Acute pancreatitis complication: unspecified Qualified Code(s): K85.90 - Acute pancreatitis without necrosis or infection, unspecified (2) Alcoholic cirrhosis of liver Priority: Secondary Status: Chronic Qualifiers: Ascites presence: with ascites Qualified Code(s): K70.31 - Alcoholic cirrhosis of liver with ascites (3) Anemia Priority: Secondary Status: Chronic Qualifiers: Anemia type: unspecified type Qualified Code(s): D64.9 - Anemia, unspecified (4) Hypomagnesemia Priority: Secondary Status: Acute (5) DM type 2 (diabetes mellitus, type 2) Priority: Secondary Status: Chronic Qualifiers: Diabetes mellitus complication status: without complication Diabetes mellitus terminal carman insulin use: with terminal carman use Qualified Code(s): E11.9 - Type 2 diabetes mellitus without complications; Z79.4 - long-term (current) use of insulin (6) Vitamin D deficiency Priority: Secondary Status: Acute (7) Hypothyroidism Priority: Secondary Status: Chronic Qualifiers: Hypothyroidism type: unspecified Qualified Code(s): E03.9 - Hypothyroidism , unspecified (8) Pneumonia Priority: Secondary Status: Acute Qualifiers: Pneumonia type: due to unspecified organism Laterality: right Lung location: lower lobe of lung Qualified Code(s): J18.1 - Lobar pneumonia, unspecified organism - Discharge Medications Prescriptions: Lactulose 10 gm PO BID #1000 ml Rifaximin [Xifaxan] 400 mg PO BID #120 tablet Home Medications: Insulin Glargine [Lantus] 17 unit SQ BID 07/05/16 [History] Albuterol Sulfate [Proair Respiclick] 2 puff IH Q6H 08/20/16 [History] Budesonide/Formoterol 80/4.5 [Symbicort 80/4.5] 2 puff IH BIDR 08/20/16 [ History] Ergocalciferol (VITAMIN D2) [Vitamin D2] 1 tab PO 7XD 08/20/16 [History] Tiotropium [Spiriva] 18 mcg IH DAILY 08/20/16 [History] Folic Acid/Multivit-Min/Lutein [Maximin Pack] 1 each PO QWEEK 11/12/16 [History] Levothyroxine [Synthroid] 25 mcg PO 0630 11/12/16 [History] Oxycodone HCl [Oxaydo] 5 mg PO QDPC 11/12/16 [History] Lactulose 10 gm PO BID #1000 ml 11/15/16 [Rx] Furosemide [Lasix] 40 mg PO BIDDIURETIC tablet 11/18/16 [Rx] Rifaximin [Xifaxan] 400 mg PO BID #120 tablet 11/18/16 [Rx] Spironolactone [Aldactone] 25 mg PO BID tablet 11/18/16 [Rx] Allergies/Adverse Reactions: Allergies tramadol [From Ultram] Adverse Reaction (Verified 11/12/16 02:06) Hives Date of admission: 11/12/16 14:06 Primary care physician: Mary Ann Helton Consults: 11/16/16 09:49 Consult to Occupational Therapy [CONS] Routine Comment: Evaluate, develop and implement POC Consult to Physical Therapy [CONS] Routine Comment: Evaluate, develop and implement POC - Patient Status Disposition: Home, Self-Care Condition: Fair Overall status at discharge: patient is progressing back to baseline - Discharge Instructions Follow Up With: Mary Ann Helton, [employer] [Primary Care Provider] - 1 week Forms: ED Satisfaction Letter, Work/School Release - Diet and Activity Activity: resume usual activities as tolerated Diet: advance to your usual diet Hospital course: Mr. Adame is a 51 year old male who came to the emergency room stating he had onset of vomiting, diarrhea, and worsening abdominal pain approximately 4 days previously. He denies melena, hematochezia, or hematemesis. He reports he has had pain for approximately 4 week since being discharged from [facility]. The pain seemed to be worsening in his right abdominal area. He was evaluated in emergency room and admitted to [facility] floor with a diagnosis of pancreatitis and elevated ammonia. Initial orders were written by the emergency room physician. I saw him on November 12 and performed the history and physical. The pancreatitis clinically improved and he was able to tolerate adequate food and fluid intake by the day of discharge without further vomiting or diarrhea. His abdominal pain significantly improved also. His azotemia resolved with BUN and creatinine being 19 and 0.3 respectively on the day of discharge. Magnesium level was low at 1.5 on admission. He was given supplemental magnesium and his level normalized by the day of discharge. He will not continue magnesium supplement at discharge. Mary Ann Helton CNP can follow-up labs as needed. His bilirubin emely to 8.1 on November 14 but had improved to 5.7 on the day of discharge. I started him on rifaximin for his cirrhosis and clinical hepatic encephalopathy. Mary Annboston Helton YAQUELIN can monitor his response to this as an outpatient. A chest x-ray done the morning of November 14 for increased dyspnea and cough showed possible right basilar infiltrate. He was started on Rocephin and Zithromax during hospitalization. He will continue oral Ceftin and Zithromax for 4 additional days after discharge. He will also be given lactobacillus. On November 15 he stated he wished to be discharged home. Discharge orders were written but following the discharge summary dictation his family arrived from [place] and did not feel he was safe to be returning to his home environment. The discharge was canceled. Social service consult was made and attempts were initially made to place him in a SNF in the [place] area. It was learned on background checks he had a felony record and was on probation with a [facility] [employer] senior officer supervising him. Attempts were then made to place him in a local SNF. On the morning of November 18 he stated he did not want to stay in the hospital any longer and was going to his brother' s house in [place]. He was clinically improved and mental status was back to what I perceived was his baseline. I did not feel he needed further antibiotic. He will continue lower dose Aldactone and Lasix. He will also continue rifaximin. - Time Spent with Patient Total time spent providing and/or coordinating discharge services: - Constitutional Vitals: Temp Pulse Resp BP Pulse Ox 98.6 F 91 16 138/77 94 L 11/18/16 07:49 11/18/16 07:49 11/18/16 07:49 11/18/16 07:49 11/18/16 07:49
== END 2016-11-18 14:09 | disposition home or self-care (01) | DRG 282 ==
LOC: INPPIK 00:43 → EMEROOPIK 00:43 → INPPIK 04:19
PROVIDERS: ADMIT Internal Medicine; ATTEND Internal Medicine